=== PATIENT | female | born 1990 ===

== ENCOUNTER 2017-04-08 19:17 | Emergency (ER) | payer SELFPAY ==
[2017-04-08 19:26] VITALS: PULSE 88; O2SAT 98
[2017-04-08 19:56] VITALS: RESP 20
[2017-04-08] MEDS ORDERED: Naproxen 550 mg Tab PO STA (20:11)
--- NOTE | 2017-04-08 20:14 | C.PDOC ---
History Of Present Illness 27 y/o female presents complaining of a cough, congestion, and fever for 1 week. Additionally, 1 month ago she began having left shoulder pain that radiates down the left arm. This pain is now exacerbated by her coughing as well as other movements such as laughing or deep inspiration. She denies any injury or trauma. Time Seen by Provider: 04/08/17 19:36 Chief Complaint (Nursing): Cough, Cold, Congestion History Per: Patient History/Exam Limitations: no limitations Onset/Duration Of Symptoms: Days (x 1 week) Current Symptoms Are (Timing): Still Present Past Medical History Reviewed: Historical Data, Nursing Documentation, Vital Signs Vital Signs: Last Vital Signs Temp 98.1 F 04/08/17 21:28 Pulse 88 04/08/17 21:28 Resp 20 04/08/17 21:28 BP 118/78 04/08/17 21:28 Pulse Ox 98 04/08/17 21:28 - Medical History PMH: Gastritis Surgical History: Appendectomy Family History: States: Unknown Family Hx - Social History Hx Alcohol Use: Yes Hx Substance Use: No Review Of Systems Except As Marked, All Systems Reviewed And Found Negative. Constitutional: Positive for: Fever ENT: Positive for: Nose Congestion Respiratory: Positive for: Cough Musculoskeletal: Positive for: Shoulder Pain (Left) Physical Exam - Physical Exam Appears: Non-toxic, No Acute Distress Skin: Normal Color, Warm, Dry, No Rash Head: Atraumatic, Normacephalic Eye(s): bilateral: Normal Inspection, PERRL, EOMI Throat: Normal Neck: Normal, Normal ROM, No Midline Cervical Tenderness, No Paracervical Tenderness, Supple Chest: Symmetrical, No Tenderness Cardiovascular: Rhythm Regular, No Murmur Respiratory: Normal Breath Sounds, No Accessory Muscle Use, No Wheezing Gastrointestinal/Abdominal: Normal Exam, Soft, No Tenderness Back: No CVA Tenderness, No Vertebral Tenderness, No Paraspinal Tenderness Extremity: Normal ROM, Capillary Refill (< 2 sec), No Swelling, Other ((+) Left trapezius muscle spasm and tenderness) Extremity: Bilateral: Atraumatic, Normal Color And Temperature, Normal ROM Pulses: Left Radial: Normal, Right Radial: Normal Neurological/Psych: Oriented x3, Normal Speech, Normal Motor, Normal Sensation Gait: Steady ED Course And Treatment ECG: Interpreted By Me, Viewed By Me Interpretation Of ECG: Sinus rhythm at 88 bpm, with normal axis. Normal ST/T O2 Sat by Pulse Oximetry: 98 (RA) Pulse Ox Interpretation: Normal - Radiology CXR: Interpreted by Me, Viewed By Me CXR Interpretation: Yes: Infiltrates (Right lower lobe infiltrate) Medical Decision Making Medical Decision Making: Time: 20:09 Initial Plan: * Naproxen 550 mg PO * Valium 2 mg PO * CXR * Reevaluation CXR shows infiltrate at right lower lobe. Ordered Zithromax 500 mg. On re-exam, the patient reports improvement of symptoms. Abdomen is soft, non-tender and tolerating PO well. Lungs are CTA, heart is RRR, Ambulatory in the ED with steady gait. Disposition Counseled Patient/Family Regarding: Studies Performed, Diagnosis, Need For Followup, Rx Given - Disposition Referrals: [facility] at [facility] [Outside] Disposition: HOME/ ROUTINE Disposition Time: 21:05 Condition: STABLE Additional Instructions: Follow up with the medical doctor within 1-2 days. Return if worsened. Prescriptions: Azithromycin [Zithromax] 500 mg PO DAILY #4 tab Ibuprofen [Motrin] 600 mg PO TID #21 tab predniSONE [Prednisone] 20 mg PO BID #10 tab Instructions: Viral Pneumonia (ED), Costochondritis (ED) Forms: [employer] (Malay) Print Language: SYRIAC - Clinical Impression Clinical Impression: Pneumonia, Muscle spasm - PA / SECONDARY [employer] / Resident Statement MD/DO has reviewed & agrees with the documentation as recorded. - Scribe Statement The provider has reviewed the documentation as recorded by the Scribe (Sarah Zhu) All medical record entries made by the Scribe were at my direction and personally dictated by me. I have reviewed the chart and agree that the record accurately reflects my personal performance of the history, physical exam, medical decision making, and the department course for this patient. I have also personally directed, reviewed, and agree with the discharge instructions and disposition.
[2017-04-08] MEDS ORDERED: Naproxen 550 mg Tab PO ONE (20:20)
[2017-04-08 21:31] VITALS: BP 118/78; TEMP 98.1
--- NOTE | 2017-04-09 09:02 | RAD ---
Chest x-ray two views History: Cough. Comparison: None available. Findings: Patchy consolidative changes in the right infrahilar region on the frontal view and in the right middle lobe on the lateral view which may represent underlying infiltrate. Clinical correlation. Bibasilar breast nipple shadows. Heart size within normal limits. Degenerative changes in the spine. Impression: Patchy consolidative changes in the right infrahilar region on the frontal view and in the right middle lobe on the lateral view which may represent underlying infiltrate. Clinical correlation.
--- NOTE | 2017-04-09 12:19 | CARD ---
APPROVED REPORT EKG Measurement Heart [id number] <Conclusion> Normal sinus rhythm Incomplete right bundle branch block Borderline ECG
== END 2017-04-08 21:28 | disposition home or self-care (01) ==
LOC: C.ER 19:17
DX: J18.9 Pneumonia, unspecified organism (principal); M62.838 Other muscle spasm

== ENCOUNTER 2017-12-16 13:50 | Emergency (ER) | payer OTHER ==
[2017-12-16] MEDS ORDERED: Sodium Chloride 0.9% 1,000 ML IV ONE (14:39)
[2017-12-16 14:40] LABS: HCG,QUALITATIVE URINE NEGATIVE (NEGATIVE)
[2017-12-16] MEDS ORDERED: Sodium Chloride 0.9% 1,000 ML ONE (14:52)
--- NOTE | 2017-12-16 14:55 | C.PDOC ---
History Of Present Illness 27 y/o female presents to ED with c/o epigastric burning pain associated with blood tinched episodes of vomiting since yesterday. Patient reports yesterday she was sitting and became dizzy, states she is unsure but believes "she passed out". Patient denies chest pain, sob, diarrhea, fever, chills or any other complaints at this time. Time Seen by Provider: 12/16/17 14:31 Chief Complaint (Nursing): Abdominal Pain History Per: Patient History/Exam Limitations: no limitations Onset/Duration Of Symptoms: Days Current Symptoms Are (Timing): Still Present Location Of Pain/Discomfort: Epigastric Past Medical History Reviewed: Historical Data, Nursing Documentation, Vital Signs Vital Signs: Last Vital Signs Temp 98.2 F 12/16/17 13:59 Pulse 70 12/16/17 13:59 Resp 18 12/16/17 13:59 BP 112/73 12/16/17 13:59 Pulse Ox 98 12/16/17 15:33 - Medical History PMH: Gastritis Surgical History: Appendectomy Family History: States: No Known Family Hx - Social History Hx Alcohol Use: Yes Hx Substance Use: No Review Of Systems Except As Marked, All Systems Reviewed And Found Negative. Gastrointestinal: Positive for: Nausea, Vomiting, Abdominal Pain Physical Exam - Physical Exam Appears: Non-toxic, No Acute Distress Skin: Warm, Dry, No Rash Head: Atraumatic, Normacephalic Eye(s): bilateral: Normal Inspection (No nystagmus) Oral Mucosa: Moist Neck: Supple Cardiovascular: Rhythm Regular Respiratory: Normal Breath Sounds, No Rales, No Rhonchi, No Wheezing Gastrointestinal/Abdominal: Soft, Tenderness (Epigastric ), No Guarding, No Rebound Back: No CVA Tenderness Neurological/Psych: Oriented x3, Normal Speech, Normal Cognition, Normal Motor, Normal Sensation ED Course And Treatment - Laboratory Results Result Diagrams: 12/16/17 15:01 12/16/17 15:01 ECG: Interpreted By Me, Viewed By Me ECG Rhythm: Sinus Rhythm, R BBB Rate From EC (BPM) O2 Sat by Pulse Oximetry: 98 (RA) Pulse Ox Interpretation: Normal Medical Decision Making Medical Decision Making: Assessment: Abdominal pain, Vasovagal syncope Progress: BP: 122/86 Heart rate: 85 BPM Standing BP: 116/78 Heart Rate: 85BPM 1556 - patient states improvement. Will discharge home to follow up with gi within 2 days Disposition - Disposition Referrals: Ari Roca MD [Staff Provider] - Disposition: HOME/ ROUTINE Disposition Time: 15:57 Condition: IMPROVED Additional Instructions: follow up with Dr. Roca within 2 days call to make an appointment take medications as prescribed return to ER if symptoms worsens or progress Prescriptions: Ondansetron ODT [Zofran ODT] 4 mg PO TID PRN #12 odt PRN Reason: Nausea/Vomiting Pantoprazole Sodium [Protonix] 40 mg PO DAILY #15 ect Instructions: Acute Abdomen (Belly Pain), Adult (DC), Syncope (Fainting) (DC) Forms: Gen Discharge Inst New Zealander, [employer] (New Zealander) Print Language: PERUVIAN - Clinical Impression Clinical Impression: Vasovagal near syncope, Abdominal pain - Scribe Statement The provider has reviewed the documentation as recorded by the Scribashlee Farrar All medical record entries made by the Scribashlee were at my direction and personally dictated by me. I have reviewed the chart and agree that the record accurately reflects my personal performance of the history, physical exam, medical decision making, and the department course for this patient. I have also personally directed, reviewed, and agree with the discharge instructions and disposition.
[2017-12-16 14:58] LABS: URINE BILIRUBIN SMALL (NEGATIVE); URINE BLOOD NEGATIVE (NEGATIVE); URINE CLARITY Hazy (Clear); URINE COLOR YELLOW (YELLOW); URINE GLUCOSE (UA) Normal (Normal); URINE PROTEIN NEGATIVE (NEGATIVE)
[2017-12-16 14:59] LABS: SQUAMOUS EPITHIAL 15 /hpf (0-5); URINE BACTERIA FEW (<OCC); URINE LEUKOCYTE ESTERASE Negative Leu/uL (Negative)
[2017-12-16 15:05] LABS: BASO # 0.1 K/uL (0.0-0.2); BASO % 0.6 % (0.0-2.0); EOS # 0.1 K/uL (0.0-0.7); EOS % 0.9 % (0.0-4.0); HEMOGLOBIN 12.6 g/dL (11.0-16.0); LYMPH # 2.1 K/uL (1.0-4.3); LYMPH % 25.1 % (20.0-40.0); MEAN CELL VOLUME 91.1 fL (81.0-99.0); MEAN CORPUSCULAR HEMOGLOBIN 31.2 pg (27.0-31.0); MEAN CORPUSCULAR HGB CONC 34.3 g/dL (33.0-37.0); MEAN PLATELET VOLUME 8.7 fL (7.2-11.7); MONO # 0.4 K/uL (0.0-0.8); MONO % 5.3 % (0.0-10.0); NEUT # 5.7 K/uL (1.8-7.0); NEUT % 68.1 % (50.0-75.0); RBC 4.05 Mil/uL (3.80-5.20); RED CELL DISTRIBUTION WIDTH 13.4 % (11.5-14.5); WHITE BLOOD COUNT 8.3 K/uL (4.8-10.8)
[2017-12-16 15:19] LABS: ALB/GLOB RATIO 1.2 (1.0-2.1); ALBUMIN 4.3 g/dL (3.5-5.0); ALT/SGPT 29 U/L (9-52); AST/SGOT 22 U/L (14-36); BLOOD UREA NITROGEN 16 mg/dL (7-17); CALCIUM 9.2 mg/dl (8.6-10.4); GFR NON-AFRICAN AMERICAN > 60; LIPASE 52 U/L (23-300)
[2017-12-16] MEDS ORDERED: Aluminum Hydroxide/Magnesium Hydroxide Susp (30 mL) PO STA (15:32)
--- NOTE | 2017-12-16 15:32 | RAD ---
Date of service: 12/16/2017 PROCEDURE: Radiographs of the chest and abdomen (obstructive series) HISTORY: abd pain COMPARISON: No prior. TECHNIQUE: AP radiograph of the chest, with upright and supine radiographs of the abdomen. FINDINGS: CHEST: No focal consolidation, significant pleural effusion, or definite pneumothorax identified.Please note that chest x-ray has limited sensitivity for the detection of pulmonary masses. ABDOMEN AND PELVIS: Nonobstructive bowel gas pattern. Mild constipation. No definite free air. Surgical clips project over the right abdomen. No acute osseous abnormality is detected. IMPRESSION: Nonobstructive bowel gas pattern. Mild constipation.
[2017-12-16] MEDS ORDERED: Aluminum Hydroxide/Magnesium Hydroxide Susp (30 mL) ONE (15:45)
[2017-12-16 16:37] VITALS: BP 106/72; PULSE 68; RESP 16; TEMP 98.1; O2SAT 100
--- NOTE | 2017-12-18 02:07 | CARD ---
APPROVED REPORT Date of service: 12/16/2017 EKG Measurement Heart [id number] IA [id number] <Conclusion> Normal sinus rhythm Incomplete right bundle branch block Borderline ECG
== END 2017-12-16 16:37 | disposition home or self-care (01) ==
LOC: C.ER 13:50
DX: R10.13 Epigastric pain (principal); R55 Syncope and collapse
CPT/HCPCS: 74022; 80053; 81001; 83690; 84703; 85025; 93005; 96374; 96375; 99284; C9113; J1885; J2405; J7030